=== PATIENT | female | born 1990 | race Two or more races ===

== ENCOUNTER 2023-01-18 15:39 | Inpatient (IN) | payer MEDICAID, OTHER ==
[~2023-01-18] VITALS: Ht 167.6 cm; Wt 109.0 kg
[2023-01-18 16:11] LABS: BASOPHILS % 0.5 % (0.0-2.0); EOSINOPHILS % 1.3 % (0.0-5.0); HEMATOCRIT. 31.5 % (36.0-48.0); HEMOGLOBIN. 10.3 g/dL (12.0-16.0); LYMPHOCYTES % 19.8 % (20.0-50.0); MEAN CORPUSCULAR HEMOGLOBIN 23.3 pg (28.0-32.0); MEAN CORPUSCULAR VOLUME 71.5 fL (81.0-99.0); MEAN PLATELET VOLUME 8.9 fl (7.4-10.4); MONOCYTES % 6.2 % (2.0-8.0); NEUTROPHILS % 72.2 % (40.0-76.0); PLATELET 207 x1000/uL (130-400); RED BLOOD CELL COUNT 4.41 mill/uL (4.2-5.4); RED CELL DISTRIBUTION WIDTH 17.4 % (11.6-14.6)
[2023-01-18 16:21] LABS: CHLORIDE 112 mEq/L (98-107); HCG SCREEN POSITIVE
[2023-01-18] MEDS ORDERED: NIFEDIPINE 10MG CAPSULE PO PRN (17:15)
[2023-01-18] MEDS ORDERED: MAGNESIUM 20 G PREMIX (L & D) 500 ML IV ONE (17:15)
[2023-01-18] MEDS ORDERED: MAGNESIUM 20 G PREMIX (L & D) 500 ML IV SCH (17:15)
[2023-01-18 17:39] LABS: BASOPHILS % 0.1 % (0.0-2.0); CLARITY URINE CLEAR (CLEAR); COLOR URINE YELLOW (YELLOW); EOSINOPHILS % 1.2 % (0.0-5.0); HEMATOCRIT. 31.6 % (36.0-48.0); HEMOGLOBIN. 10.2 g/dL (12.0-16.0); KETONES URINE NEGATIVE (NEGATIVE); LEUKOCYTE ESTERASE URINE NEGATIVE (NEGATIVE); LYMPHOCYTES % 19.2 % (20.0-50.0); MEAN CORPUSCULAR HEMOGLOBIN 23.2 pg (28.0-32.0); MEAN CORPUSCULAR VOLUME 71.9 fL (81.0-99.0); MEAN PLATELET VOLUME 9.2 fl (7.4-10.4); MONOCYTES % 7.9 % (2.0-8.0); NEUTROPHILS % 71.6 % (40.0-76.0); NITRITE URINE NEGATIVE (NEGATIVE); OCCULT BLOOD URINE NEGATIVE (NEGATIVE); PLATELET 217 x1000/uL (130-400); PROTEIN URINE NEGATIVE (NEGATIVE); RED CELL DISTRIBUTION WIDTH 17.4 % (11.6-14.6); SPECIFIC GRAVITY URINE 1.012 (1.005-1.030)
[2023-01-18] MEDS: BETAMETHASONE ACET/BETAMET 30 MG/5 ML VIAL IM SCH (17:45)
[2023-01-18 17:55] LABS: CHLORIDE 112 mEq/L (98-107); D-DIMER 1.82 mg/L FEU (<0.50); INR 0.9; PARTIAL THROMBOPLASTIN TIME 27.6 sec (23.4-31.0); PROTHROMBIN TIME 9.8 sec (9.6-11.0)
[2023-01-18] MEDS ORDERED: LABE200T9 PO (18:39)
[2023-01-18] MEDS ORDERED: CALC-1042 MT (18:39)
[2023-01-18] MEDS ORDERED: PREN1TAB23 PO (18:39)
[2023-01-18] MEDS ORDERED: METO-293 PO (18:39)
[2023-01-18] MEDS ORDERED: PANT20TA17 MT (18:39)
[2023-01-18] MEDS: ACETAMINOPHEN 325MG TABLET PO PRN (19:42)
[2023-01-18] MEDS ORDERED: LABETALOL HCL 200MG TABLET PO SCH (20:00)
[2023-01-18] MEDS: NIFEDIPINE 10MG CAPSULE PO PRN (21:15)
[2023-01-18 23:18] LABS: HEPATITIS B SURFACE ANTIGEN NEGATIVE
[2023-01-18 23:33] LABS: *AMPHETAMINES SCREEN URINE NEGATIVE (NEGATIVE); *BARBITURATES SCREEN URINE NEGATIVE (NEGATIVE); *BENZODIAZEPINES SCREEN URINE NEGATIVE (NEGATIVE); *COCAINE SCREEN URINE NEGATIVE (NEGATIVE); CANNABINOID URINE SCREEN NEGATIVE (NEGATIVE); METHADONE URINE SCREEN NEGATIVE (NEGATIVE); OPIATES URINE SCREEN NEGATIVE (NEGATIVE); PHENCYCLIDINE URINE SCREEN NEGATIVE (NEGATIVE)
[2023-01-19] MEDS: NIFEDIPINE 10MG CAPSULE PO PRN ×3 (00:16→16:12)
[2023-01-19] MEDS ORDERED: DEXT 5%/LACTATED RINGERS 1,000 ML IV SCH (02:15)
[2023-01-19] MEDS ORDERED: ACETAMINOPHEN 650MG/20.3ML UDC PO ONE (02:15)
[2023-01-19] MEDS: ACETAMINOPHEN 325MG TABLET PO PRN (02:28)
[2023-01-19] MEDS ORDERED: LABETALOL HCL 200MG TABLET PO SCH ×2 (06:00→09:00)
[2023-01-19] MEDS ORDERED: MAGNESIUM 20 G PREMIX (L & D) 500 ML IV SCH (07:20)
[2023-01-19] MEDS ORDERED: LABETALOL HCL 5MG/ML VIAL 20ML IV PRN (07:30)
[2023-01-19] MEDS ORDERED: NIFEDIPINE 10MG CAPSULE PO PRN ×3 (07:30→15:15)
[2023-01-19 08:25] LABS: BASOPHILS % 0.1 % (0.0-2.0); HEMATOCRIT. 31.8 % (36.0-48.0); HEMOGLOBIN. 10.4 g/dL (12.0-16.0); LYMPHOCYTES % 9.9 % (20.0-50.0); MEAN CORPUSCULAR HEMOGLOBIN 23.5 pg (28.0-32.0); MEAN CORPUSCULAR VOLUME 71.8 fL (81.0-99.0); MEAN PLATELET VOLUME 9.5 fl (7.4-10.4); MONOCYTES % 2.8 % (2.0-8.0); NEUTROPHILS % 87.2 % (40.0-76.0); PLATELET 214 x1000/uL (130-400); RED BLOOD CELL COUNT 4.42 mill/uL (4.2-5.4); RED CELL DISTRIBUTION WIDTH 17.3 % (11.6-14.6)
[2023-01-19 08:31] LABS: CHLORIDE 108 mEq/L (98-107)
[2023-01-19] MEDS: LACTATED RINGERS 1,000 ML IV SCH ×2 (10:09→22:15)
[2023-01-19] MEDS: LABETALOL HCL 100MG TABLET PO SCH (14:10)
[2023-01-19] MEDS: BETAMETHASONE ACET/BETAMET 30 MG/5 ML VIAL IM SCH (16:55)
[2023-01-19] MEDS ORDERED: CITRIC ACID/SODIUM CITRATE SOLN 30ML UDC PO NR (21:45)
[2023-01-19 21:46] LABS: BASOPHILS % 0.2 % (0.0-2.0); HEMATOCRIT. 34.3 % (36.0-48.0); LYMPHOCYTES % 9.1 % (20.0-50.0); MEAN CORPUSCULAR VOLUME 71.9 fL (81.0-99.0); MONOCYTES % 3.5 % (2.0-8.0); NEUTROPHILS % 87.2 % (40.0-76.0); PLATELET 246 x1000/uL (130-400); RED BLOOD CELL COUNT 4.77 mill/uL (4.2-5.4); RED CELL DISTRIBUTION WIDTH 17.3 % (11.6-14.6)
[2023-01-19 21:52] LABS: CHLORIDE 108 mEq/L (98-107)
[2023-01-19] MEDS ORDERED: NALOXONE HCL 0.4 MG/ML 1ML VIAL IV PRN (23:15)
[2023-01-19] MEDS ORDERED: DIPHENHYDRAMINE 50MG/ML VIAL IV PRN (23:15)
[2023-01-19] MEDS ORDERED: KETOROLAC 30MG/ML VIAL IV SCH (23:15)
[2023-01-19] MEDS ORDERED: IBUPROFEN 400MG TABLET PO PRN (23:45)
[2023-01-19] MEDS ORDERED: IBUPROFEN 800MG TABLET PO PRN (23:45)
[2023-01-19] MEDS ORDERED: BISACODYL 10MG SUPP PR PRN (23:45)
[2023-01-19] MEDS ORDERED: HYDROMORPHONE HCL/PF 2MG/ML CPJ IM PRN (23:45)
[2023-01-19] MEDS ORDERED: DIPHENHYDRAMINE 25MG CAPSULE PO PRN (23:45)
[2023-01-20] VITALS (10 sets, daily range): BP systolic 127–180; BP diastolic 67–88
[2023-01-20] MEDS: LABETALOL HCL 100MG TABLET PO SCH ×4 (00:26→23:24)
[2023-01-20] MEDS: OXYTOCIN 30 UNITS/500ML NS PMX 500 ML IV SCH ×2 (01:44→05:42)
[2023-01-20] MEDS ORDERED: LABETALOL HCL 100MG TABLET PO SCH (06:00)
[2023-01-20 07:38] LABS: HEMATOCRIT. 30.3 % (36.0-48.0); HEMOGLOBIN. 9.6 g/dL (12.0-16.0); MEAN CORPUSCULAR HEMOGLOBIN 23.1 pg (28.0-32.0); MEAN CORPUSCULAR VOLUME 72.6 fL (81.0-99.0); MEAN PLATELET VOLUME 9.2 fl (7.4-10.4); PLATELET 226 x1000/uL (130-400); RED BLOOD CELL COUNT 4.18 mill/uL (4.2-5.4); RED CELL DISTRIBUTION WIDTH 17.7 % (11.6-14.6)
[2023-01-20] MEDS: FERROUS SULFATE 325MG TABLET PO SCH ×3 (08:29→17:04)
[2023-01-20] MEDS ORDERED: PRENATAL VIT/FE FUMARATE/FA TABLET PO SCH (09:00)
[2023-01-20] MEDS: LACTATED RINGERS 1,000 ML IV SCH (10:19)
[2023-01-20 11:44] LABS: PLATELET ESTIMATE NORMAL
[2023-01-20] MEDS: ACETAMINOPHEN 325MG TABLET PO PRN (12:46)
[2023-01-20] MEDS: IBUPROFEN 800MG TABLET PO PRN (23:24)
[2023-01-21] VITALS (10 sets, daily range): BP systolic 159–182; BP diastolic 54–76
[2023-01-21] MEDS: AMLODIPINE 5MG TABLET PO SCH ×2 (04:04→19:05)
[2023-01-21] MEDS: IBUPROFEN 800MG TABLET PO PRN ×3 (06:26→20:01)
[2023-01-21 06:59] LABS: BASOPHILS % 0.2 % (0.0-2.0); EOSINOPHILS % 0.2 % (0.0-5.0); HEMATOCRIT. 27.6 % (36.0-48.0); HEMOGLOBIN. 8.9 g/dL (12.0-16.0); LYMPHOCYTES % 22.6 % (20.0-50.0); MEAN CORPUSCULAR HEMOGLOBIN 23.3 pg (28.0-32.0); MEAN CORPUSCULAR VOLUME 71.9 fL (81.0-99.0); MEAN PLATELET VOLUME 8.4 fl (7.4-10.4); MONOCYTES % 7.5 % (2.0-8.0); NEUTROPHILS % 69.5 % (40.0-76.0); PLATELET 192 x1000/uL (130-400); RED BLOOD CELL COUNT 3.84 mill/uL (4.2-5.4); RED CELL DISTRIBUTION WIDTH 17.4 % (11.6-14.6)
[2023-01-21] MEDS: FERROUS SULFATE 325MG TABLET PO SCH (14:13)
[2023-01-21] MEDS: PRENATAL VIT/FE FUMARATE/FA TABLET PO SCH (14:13)
[2023-01-21] MEDS: LABETALOL HCL 100MG TABLET PO SCH ×3 (14:15→22:02)
[2023-01-22] VITALS (8 sets, daily range): BP systolic 164–219; BP diastolic 69–99
[2023-01-22] MEDS: IBUPROFEN 800MG TABLET PO PRN ×2 (04:09→17:43)
[2023-01-22] MEDS ORDERED: AMLODIPINE 5MG TABLET PO SCH (06:00)
[2023-01-22] MEDS: LABETALOL HCL 100MG TABLET PO SCH ×3 (06:03→17:40)
[2023-01-22 08:34] LABS: BASOPHILS % 0.4 % (0.0-2.0); EOSINOPHILS % 1.1 % (0.0-5.0); HEMATOCRIT. 28.6 % (36.0-48.0); HEMOGLOBIN. 9.2 g/dL (12.0-16.0); LYMPHOCYTES % 22.9 % (20.0-50.0); MEAN CORPUSCULAR HEMOGLOBIN 23.2 pg (28.0-32.0); MEAN CORPUSCULAR VOLUME 72.3 fL (81.0-99.0); MEAN PLATELET VOLUME 8.9 fl (7.4-10.4); NEUTROPHILS % 68.6 % (40.0-76.0); PLATELET 218 x1000/uL (130-400); RED BLOOD CELL COUNT 3.96 mill/uL (4.2-5.4); RED CELL DISTRIBUTION WIDTH 17.2 % (11.6-14.6)
[2023-01-22 08:53] LABS: CHLORIDE 107 mEq/L (98-107)
[2023-01-22] MEDS ORDERED: NIFEDIPINE XL 90MG TAB PO SCH (09:00)
[2023-01-22 09:12] LABS: T4 FREE 2.67 ng/dL (0.76-1.46)
[2023-01-22] MEDS ORDERED: CLONIDINE 0.2MG TABLET PO NR (09:30)
[2023-01-22] MEDS: FERROUS SULFATE 325MG TABLET PO SCH (17:38)
[2023-01-22] MEDS: PRENATAL VIT/FE FUMARATE/FA TABLET PO SCH (17:38)
== END 2023-01-22 18:20 | disposition left against medical advice (07) | DRG 540 ==
LOC: ER 15:58 → 8 EST LDRP 16:17 → OBSVTOIN 18:00 → 8EST 01-20 01:25
PROVIDERS: ADMIT Obstetrics & Gynecology; ATTEND Obstetrics & Gynecology
PROC: 10D00Z1 Extraction of Products of Conception, Low, Open Approach (ICD-10-PCS; principal; 2023-01-19)
DX: O13.4 Gestational [pregnancy-induced] hypertension without significant proteinuria, complicating childbirth (principal); O87.2 Hemorrhoids in the puerperium; O36.5930 Maternal care for other known or suspected poor fetal growth, third trimester, not applicable or unspecified; O99.52 Diseases of the respiratory system complicating childbirth; H26.9 Unspecified cataract; Z20.822 Contact with and (suspected) exposure to COVID-19; O34.211 Maternal care for low transverse scar from previous cesarean delivery; O99.02 Anemia complicating childbirth; Z53.29 Procedure and treatment not carried out because of patient's decision for other reasons; Z82.49 Family history of ischemic heart disease and other diseases of the circulatory system; Z3A.33 33 weeks gestation of pregnancy; Z37.0 Single live birth
CPT/HCPCS: 36415; 76805; 76818; 80053; 80305; 80359; 81003; 83036; 83735; 83992; 84439; 84443; 84550; 84703; 85025; 85379; 85384; 86592; 86703; 86762; 86850; 86900; 87340; 88307; 93306; 99281; 99285; G0378; J0702; J3475; J7120; J7121; A4315; J2590

== ENCOUNTER 2023-09-09 00:39 | Emergency (ER) | payer MEDICAID, OTHER ==
[~2023-09-09] VITALS: Ht 167.6 cm; Wt 93.0 kg
[~2023-09-09 00:39] MED LIST: CALC-1042 MT; LABE200T9 PO; METO-293 PO; PANT20TA17 MT; PREN1TAB23 PO
[2023-09-09 01:07] VITALS: BP 152/80; PULSE 112; RESP 15; TEMP 98.3
[2023-09-09 01:40] LABS: BASOPHILS % 0.3 % (0.0-2.0); DIFFERENTIAL COMMENT 0; EOSINOPHILS % 3.1 % (0.0-5.0); HEMATOCRIT. 36.7 % (36.0-48.0); HEMOGLOBIN. 11.5 g/dL (12.0-16.0); LYMPHOCYTES % 50.7 % (20.0-50.0); MEAN CORPUSCULAR HEMOGLOBIN 23.4 pg (28.0-32.0); MEAN CORPUSCULAR HGB CONC 31.5 g/dL (31.0-37.0); MEAN CORPUSCULAR VOLUME 74.4 fL (81.0-99.0); MEAN PLATELET VOLUME 7.9 fl (7.4-10.4); MONOCYTES % 7.1 % (2.0-8.0); NEUTROPHILS % 38.8 % (40.0-76.0); PLATELET 253 x1000/uL (130-400); RED BLOOD CELL COUNT 4.93 mill/uL (4.2-5.4); RED CELL DISTRIBUTION WIDTH 12.7 % (11.6-14.6); WHITE BLOOD COUNT 6.3 x1000/uL (4.5-11.0)
[2023-09-09 02:00] LABS: ALANINE AMINOTRANSFERASE 26 IU/L (10-49); ALBUMIN 3.8 g/dL (3.2-4.8); ASPARTATE AMINOTRANSFERASE 16 IU/L (<34); BILIRUBIN TOTAL 0.4 mg/dL (0.1-1.0); CALCIUM 9.6 mg/dL (8.7-10.4); CARBON DIOXIDE 24 mEq/L (21-32); CHLORIDE 109 mEq/L (98-107); CREATININE 0.6 mg/dL (0.6-1.0); GLUCOSE 100 mg/dL (70-105); POTASSIUM 3.8 mEq/L (3.5-5.1); SODIUM 142 mEq/L (136-145); UREA NITROGEN BLOOD 12 mg/dL (9-23)
== END 2023-09-09 08:24 | disposition left against medical advice (07) ==
LOC: ER 00:39
DX: R10.32 Left lower quadrant pain (principal); Z53.21 Procedure and treatment not carried out due to patient leaving prior to being seen by health care provider
CPT/HCPCS: 36415; 80053; 85025; 99281

== ENCOUNTER 2023-10-18 22:18 | Emergency (ER) | payer SELFPAY ==
[~2023-10-18] VITALS: Ht 167.6 cm; Wt 94.5 kg
[2023-10-18 22:48] VITALS: BP 177/94; PULSE 102; RESP 18; TEMP 98.2; O2SAT 100
[2023-10-18 23:22] LABS: BASOPHILS % 0.3 % (0.0-2.0); DIFFERENTIAL COMMENT 0; EOSINOPHILS % 6.7 % (0.0-5.0); HEMATOCRIT. 32.8 % (36.0-48.0); HEMOGLOBIN. 10.6 g/dL (12.0-16.0); LYMPHOCYTES % 53.8 % (20.0-50.0); MEAN CORPUSCULAR HEMOGLOBIN 23.8 pg (28.0-32.0); MEAN CORPUSCULAR HGB CONC 32.3 g/dL (31.0-37.0); MEAN CORPUSCULAR VOLUME 73.6 fL (81.0-99.0); MEAN PLATELET VOLUME 7.6 fl (7.4-10.4); MONOCYTES % 8.8 % (2.0-8.0); NEUTROPHILS % 30.4 % (40.0-76.0); PLATELET 250 x1000/uL (130-400); RED BLOOD CELL COUNT 4.46 mill/uL (4.2-5.4); RED CELL DISTRIBUTION WIDTH 13.1 % (11.6-14.6); WHITE BLOOD COUNT 5.9 x1000/uL (4.5-11.0)
[2023-10-18 23:37] LABS: ALANINE AMINOTRANSFERASE 23 IU/L (10-49); ALBUMIN 3.9 g/dL (3.2-4.8); ASPARTATE AMINOTRANSFERASE 15 IU/L (<34); BILIRUBIN TOTAL 0.2 mg/dL (0.1-1.0); CALCIUM 9.3 mg/dL (8.7-10.4); CARBON DIOXIDE 26 mEq/L (21-32); CHLORIDE 110 mEq/L (98-107); CREATININE 0.5 mg/dL (0.6-1.0); GLUCOSE 110 mg/dL (70-105); POTASSIUM 3.6 mEq/L (3.5-5.1); PROTEIN TOTAL 6.9 g/dL (6.0-8.3); SODIUM 143 mEq/L (136-145); TROPONIN I HIGH SENSITIVITY 4 ng/L (3.0-34); UREA NITROGEN BLOOD 11 mg/dL (9-23)
[2023-10-19 00:02] LABS: INR 0.9; PARTIAL THROMBOPLASTIN TIME 23.9 sec (23.4-31.0); PROTHROMBIN TIME 10.4 sec (9.6-11.0)
[2023-10-19 00:09] LABS: CLARITY URINE TURBID (CLEAR); COLOR URINE YELLOW (YELLOW); GLUCOSE URINE NEGATIVE (NEGATIVE); KETONES URINE NEGATIVE (NEGATIVE); LEUKOCYTE ESTERASE URINE TRACE (NEGATIVE); NITRITE URINE NEGATIVE (NEGATIVE); OCCULT BLOOD URINE NEGATIVE (NEGATIVE); PH URINE 6.5 (4.5-8.0); PROTEIN URINE NEGATIVE (NEGATIVE); SPECIFIC GRAVITY URINE 1.013 (1.005-1.030)
[2023-10-19 03:46] LABS: SQUAMOUS EPITHELIAL CELL URINE FEW /lpf (RARE/1+)
[2023-10-19 03:47] LABS: RBC URINE 0-2 /hpf (0-2); WBC URINE 0-2 /hpf (0-2)
[2023-10-19 03:48] LABS: AMORPHOUS SEDIMENT URINE 1+ /lpf; BACTERIA URINE 2+
== END 2023-10-19 05:33 | disposition left against medical advice (07) ==
LOC: ER 22:58
DX: R06.02 Shortness of breath (principal); J45.909 Unspecified asthma, uncomplicated; I10 Essential (primary) hypertension; E05.90 Thyrotoxicosis, unspecified without thyrotoxic crisis or storm; Z98.890 Other specified postprocedural states
CPT/HCPCS: 36415; 71045; 80053; 81003; 84484; 85025; 99284

== ENCOUNTER 2025-01-01 23:51 | Emergency (ER) | payer MEDICAID ==
[~2025-01-01] VITALS: Ht 170.2 cm; Wt 106.3 kg
[2025-01-02 00:17] VITALS: O2SAT 99
[2025-01-02 02:29] VITALS: BP 129/93; PULSE 85; RESP 14; TEMP 36.8; O2SAT 100
== END 2025-01-02 02:30 | disposition home or self-care (01) ==
LOC: ER 23:51
DX: M79.671 Pain in right foot (principal); I10 Essential (primary) hypertension; J45.909 Unspecified asthma, uncomplicated; Z79.899 Other long term (current) drug therapy; Z98.890 Other specified postprocedural states
CPT/HCPCS: 73630; 99283